=== PATIENT | female | born 1940 | race Caucasian/White ===

== ENCOUNTER 2022-02-17 12:14 | Inpatient (IN) | payer BC ==
[~2022-02-17] VITALS: Ht 165.1 cm; Wt 68.0 kg
[2022-02-17] MEDS ORDERED: IV NS 0.9% 1,000 ML BAG IV ONE ×2 (12:30→15:00)
--- NOTE | 2022-02-17 12:49 | NUR ---
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
--- NOTE | 2022-02-17 12:59 | NUR ---
COVID ANTIGEN SWAB DONE AND SENT TO THE LAB
--- NOTE | 2022-02-17 13:03 | NUR ---
MOVE SHEET SUBMITTED.
--- NOTE | 2022-02-17 13:23 | NUR ---
THE PATIENT IS TAKEN TO CT [facility]IA [facility]
--- NOTE | 2022-02-17 13:29 | NUR ---
RADHA RODRIGUEZ (CAREGIVER) CELL [phone], HOME [phone]
[2022-02-17 13:30] LABS: ALANINE AMINOTRANSFERASE 285 U/L (12-78); ALBUMIN 3.2 g/dL (3.4-5.0); ALKALINE PHOSPHATASE 58 U/L (46-116); ASPARTATE AMINOTRANSFERASE 805 U/L (15-37); BILIRUBIN,DIRECT 0.3 mg/dL (0.0-0.2); BILIRUBIN,TOTAL 1.1 mg/dL (0.2-1.0); CALCIUM, SERUM 8.4 mg/dL (8.5-10.1); CARBON DIOXIDE 25 mmol/L (21-32); CHLORIDE 105 mmol/L (98-107); GLUCOSE 117 mg/dL (74-106); POTASSIUM 3.7 mmol/L (3.5-5.1); SODIUM SERUM 138 mmol/L (136-145); TOTAL PROTEIN, SERUM 6.9 g/dL (6.4-8.2); UREA NITROGEN, BLOOD 40 mg/dL (7-18)
--- NOTE | 2022-02-17 13:33 | NUR ---
THE PATIENT IS BACK FROM CT VIA [facility]
[2022-02-17 13:47] LABS: BASOPHILS % (AUTO) 0.1 % (0.0-2.0); HEMATOCRIT 41 % (33-45); HEMOGLOBIN 13.2 g/dL (11.5-14.8); LYMPHOCYTES # (AUTO) 0.8 K/uL (0.8-4.8); LYMPHOCYTES % (AUTO) 5.1 % (20.0-44.0); MEAN CORPUSCULAR HGB CONC 32 g/dl (31.0-36.0); MEAN CORPUSCULAR VOLUME 87 fL (82-100); MONOCYTES # (AUTO) 1.6 K/uL (0.1-1.30); MONOCYTES % (AUTO) 10.6 % (2.0-12.0); NEUTROPHILS # (AUTO) 12.5 K/uL (1.8-8.9); NEUTROPHILS % (AUTO) 84.2 % (43.0-81.0); PLATELET COUNT (AUTO) 263 K/uL (150-450); RED BLOOD CELL COUNT(AUTO) 4.69 MIL/uL (4.0-5.2); WHITE BLOOD COUNT (AUTO) 14.8 K/uL (4.3-11.0)
[2022-02-17] MEDS ORDERED: AMOX500C2 PO (14:05)
[2022-02-17] MEDS ORDERED: ROSU10TA29 PO (14:05)
[2022-02-17] MEDS ORDERED: MYRBETRIQ PO (14:05)
[2022-02-17] MEDS ORDERED: ASPIRIN 81 MG TAB.CHEW PO ONE (14:30)
[2022-02-17] MEDS ORDERED: ASPIRIN 81 MG TAB.CHEW ONE (14:32)
--- NOTE | 2022-02-17 14:51 | NUR ---
troponin blood drawn test sent to lab
--- NOTE | 2022-02-17 14:51 | NUR ---
PT SLEEPING, 700 ML VOID URINE BROWN AND PINK/RED IN COLOR
[2022-02-17] MEDS ORDERED: ONDANSETRON HCL/PF 4 MG/2 ML VIAL IVP PRN (15:00)
[2022-02-17] MEDS: ASPIRIN 81 MG TAB.CHEW PO SCH (15:04)
--- NOTE | 2022-02-17 15:34 | NUR ---
ROOM 115-2
[2022-02-17] MEDS ORDERED: ENOXAPARIN SODIUM 40 MG/0.4 ML DISP.SYRIN SQ ONE (16:00)
--- NOTE | 2022-02-17 16:00 | NUR ---
HOSIERY BAGGER NOTE ADMIT 81 YEAR OLD FEMALE TO TRAVON UNIT AT ROOM 115-2 ON TELE MONITORING,ADMITTING DIAGNOSIS IS NSTEMI.LACTIC ACID IS 2.0.TROPONIN LEVEL IS 2239.ALERT ORIENTED X4 VERBALLY RESPONSIVE ON ROOM AIR O2:96% IV SITE IS ON LEFT AC INTACT PATENT,SAFETY MEASURE IMPLEMENT BED IN LOW POSITION AND LOCKED,HEAD OF ELEVATED,CALL LIGHT WITHIN REACH CONTINUE TO MONITOR
[2022-02-17 16:16] VITALS: BP 101/49
[2022-02-17] MEDS: IV NS 0.9% 1,000 ML IV PRN (16:33)
--- NOTE | 2022-02-17 18:42 | NUR ---
RN NOTE PATIENT REMAINS ALERT ORIENTED X4 VERBALLY RESPONSIVE ON ROOM AIR O2:97% NO PAIN NOT ACUTE DISTRESS NOTED,IV SITE IS ON LEFT AC INTACT PATENT ON IV HYDRATION 80CC/HR,ALL DUE MEDS GIVEN MD ORDERED KEPT CLEAN AND DRY,KEPT CALL LIGHT WITHIN REACH,ENDORSE NEXT COMING SHIFT FOR CONTINUATION OF CARE
--- NOTE | 2022-02-17 19:48 | NUR ---
RN OPENING NOTE PATIENT AWAKE IN BED. A/OX3. NO S/S OF DISTRESS, BREATHING WITHOUT DIFFICULTY ON ROOM AIR. LAC#20 INTACT AND PATENT W/ NS 80ML/HR. TELE READS SR 77 W/ BBB. SAFETY MEASURES IN PLACE: BED LOCKED AND AT LOWEST POSITION, RAILS UP X2, CALL SHARMA WITHIN REACH. WILL CONTINUE TO MONITOR THE PATIENT.
[2022-02-17 20:00] VITALS: BP 144/64
[2022-02-17] MEDS: POLYVINYL ALCOHOL/POVIDONE 0.4 ML DROPERETTE EACHEYE SCH (22:06)
[2022-02-18] VITALS: BP 115/58
--- NOTE | 2022-02-18 00:45 | NUR ---
RN NOTES CRITICAL LAB RECEIVED; TROPONIN 1324 ENDORSED TO PRIMARY NURSE-ADEBAYO JACKMAN
[2022-02-18 08:00] VITALS: BP 124/59
--- NOTE | 2022-02-18 08:03 | NUR ---
RN OPENING NOTE PATIENT AWAKE IN BED. A/OX3. NO S/S OF DISTRESS, BREATHING WITHOUT DIFFICULTY ON ROOM AIR. LAC#20 INTACT AND PATENT W/ NS 80ML/HR. TELE READS SR 62 W/ BBB. SAFETY MEASURES IN PLACE: BED LOCKED AND AT LOWEST POSITION, RAILS UP X2, CALL SHARMA WITHIN REACH. WILL CONTINUE TO MONITOR THE PATIENT.
[2022-02-18] MEDS: POLYVINYL ALCOHOL 15 ML BOTTLE EACHEYE PRN (09:01)
[2022-02-18] MEDS: ASPIRIN 81 MG TAB.CHEW PO SCH (09:01)
[2022-02-18] MEDS: POLYVINYL ALCOHOL/POVIDONE 0.4 ML DROPERETTE EACHEYE SCH ×2 (09:03→17:49)
[2022-02-18 12:00] VITALS: BP 112/54
[2022-02-18 15:03] LABS: BASOPHILS % (AUTO) 0.3 % (0.0-2.0); EOSINOPHILS % (AUTO) 0.6 % (0.0-6.0); HEMATOCRIT 38 % (33-45); HEMOGLOBIN 12.8 g/dL (11.5-14.8); MEAN CORPUSCULAR HGB CONC 34 g/dl (31.0-36.0); MEAN CORPUSCULAR VOLUME 87 fL (82-100); MONOCYTES % (AUTO) 11.9 % (2.0-12.0); NEUTROPHILS # (AUTO) 6.4 K/uL (1.8-8.9); NEUTROPHILS % (AUTO) 75.2 % (43.0-81.0); PLATELET COUNT (AUTO) 237 K/uL (150-450); RED BLOOD CELL COUNT(AUTO) 4.36 MIL/uL (4.0-5.2); WHITE BLOOD COUNT (AUTO) 8.5 K/uL (4.3-11.0)
[2022-02-18 15:14] LABS: CALCIUM, SERUM 7.7 mg/dL (8.5-10.1); CREATININE 0.7 mg/dL (0.6-1.3); MAGNESIUM 2.2 mg/dL (1.8-2.4); PHOSPHORUS 2.8 mg/dL (2.5-4.9); POTASSIUM 4.2 mmol/L (3.5-5.1)
[2022-02-18 16:00] VITALS: BP 111/56
[2022-02-18] MEDS: IV NS 0.9% 1,000 ML IV PRN (18:57)
--- NOTE | 2022-02-18 19:10 | NUR ---
RN NOTES RECEIVED REPORT FROM MORNING SHIFT. PATIENT IN BED A/O X3 ABLE TO MAKE NEEDS KNOWN. WITH PERIODS OF CONFUSION. ON ROOM AIR SATING 97% NO SOB NO PAIN NOTED AT THIS TIME. ALL SAFETY MEASURES IN PLACE AT ALL TIMES. HOB ELEVATED. CALL LIGHT WITHIN REACH. WILL CONTINUE TO MONITOR THE PATIENT CLOSELY
[2022-02-18 20:00] VITALS: BP 113/60
[2022-02-19] VITALS: BP 128/71
--- NOTE | 2022-02-19 02:30 | NUR ---
RN NOTES RELAYED CULTURE RESULT TO DR BRANDON LEBRON GRAM POSITIVE COCCI CLUSTER WITH NEW ORDER TO START VANCOMYCIN PHARMACY TO DOSE
[2022-02-19] MEDS ORDERED: VANCOMYCIN 1.25 GM in IV D5W 250 ML IV ONE (03:30)
[2022-02-19] MEDS ORDERED: VANCOMYCIN 1 GM VIAL ONE (03:44)
[2022-02-19 04:00] VITALS: BP 129/74
--- NOTE | 2022-02-19 06:53 | NUR ---
RN NOTES PATIENT REMAINS STABLE NO SIGNIFICANT CHANGES IN HEALTH CONDITION. ALL DUE MEDS GIVEN. STILL WITH R FA IV ACCESS PATENT FLUSHES WELL. WITH ONGOING IVF PNS @ 80CC/HR TOLERATING WELL. ALL SAFETY MEASURES IN PLACE AT ALL TIMES. HOB ELEVATED. CALL LIGHT WITHIN REACH. WILL ENDORSED TO MORNING SHIFT FOR RICKY
--- NOTE | 2022-02-19 07:30 | NUR ---
telephone mechanic opening note Patient is alert and oriented x3-4. patient is currently sinus rhythm on tele monitor. Patient has right forearm 20 gauge. iv patent and flushing well. patient has normal saline running at 80 ml/hr. patient is on room air tolerating above 95%. patient uses diaper. patient is fall risk. all safety measures in place. call light within beach. bed locked at lowest position. side rails up x2. will continue to assess throughout shift.
[2022-02-19 08:00] VITALS: BP 118/56
[2022-02-19] MEDS: ASPIRIN 81 MG TAB.CHEW PO SCH (10:28)
[2022-02-19] MEDS: POLYVINYL ALCOHOL 15 ML BOTTLE EACHEYE PRN (10:28)
--- NOTE | 2022-02-19 10:30 | NUR ---
patient caregiver at bedside
--- NOTE | 2022-02-19 11:00 | NUR ---
physical therapist saw patient
[2022-02-19 12:00] VITALS: BP 119/49
[2022-02-19] MEDS: POLYVINYL ALCOHOL/POVIDONE 0.4 ML DROPERETTE EACHEYE SCH ×2 (12:03→16:21)
[2022-02-19] MEDS: IV NS 0.9% 1,000 ML IV PRN (14:26)
[2022-02-19] MEDS: VANCOMYCIN 0.75 GM in IV D5W 250 ML IV SCH (15:49)
[2022-02-19 16:00] VITALS: BP 125/50
--- NOTE | 2022-02-19 18:54 | NUR ---
telemarketer supervisor closing note Patient is alert and oriented x3-4. patient is med surg status. Patient has right forearm 20 gauge. iv patent and flushing well. patient has normal saline currently running at 80 ml/hr. patient is on room air tolerating above 95%. patient uses diaper. kept clean and dry.patient is fall risk. all needs met. reinforced teaching on fall precautions.all safety measures in place. call light within beach. bed locked at lowest position. side rails up x2. endorsed to night worker rn
--- NOTE | 2022-02-19 19:05 | NUR ---
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 -ORIENTED TO UNIT AND STAFF, NON LABORED BREATHING, KEPT CALL LIGHT WITHIN EASY REACH, SAFETY PRECAUTION OBSERVED.
[2022-02-19 20:00] VITALS: BP 119/70
[2022-02-20] VITALS: BP 122/65
[2022-02-20 04:00] VITALS: BP 122/65
[2022-02-20] MEDS: VANCOMYCIN 0.75 GM in IV D5W 250 ML IV SCH (04:11)
[2022-02-20] MEDS: IV NS 0.9% 1,000 ML IV PRN ×2 (04:12→19:20)
--- NOTE | 2022-02-20 04:13 | NUR ---
RN NOTES: IVF CONSUMED, STARTED NEW BAG OF NS AT 80ML/HR.
--- NOTE | 2022-02-20 04:13 | NUR ---
RN NOTES: AWAKE IN BETWEEN SHE WAS BEEN CHANGE BY DX BOARD OPERATOR SEVERAL TIME, WITH URINARY FREQUENCY, RESIDENT CLAIMED SHE HAS OVERACTIVE BLADDER, WILL F/U IN THE MORNING IF SHE CAN RESUME HER HOME MEDICATION [facility].
--- NOTE | 2022-02-20 07:30 | NUR ---
MS RN OPENING NOTE RECEIVED PT ASLEEP IN BED, EASILY AROUSED. A/O X 3-4, ABLE TO MAKE NEEDS KNOWN. ON RA, TOLERATING WELL. NO SOB NOTED. NOT IN ANY SIGN OF RESPIRATORY DISTRESS. IV ACCESS IN RFA G #20 INTACT AND PATENT WITH NS INFUSING AT 80ML/HR. SAFETY MEASURES IN PLACE: BED IN LOWEST AND LOCKED POSITION, SIDE RAILS UP X2, AND CALL LIGHT WITHIN REACH. WILL CONTINUE TO MONITOR PT.
[2022-02-20 07:44] LABS: CARBON DIOXIDE 30 mmol/L (21-32); CHLORIDE 99 mmol/L (98-107); CREATININE 0.6 mg/dL (0.6-1.3); GLUCOSE 108 mg/dL (74-106); POTASSIUM 3.9 mmol/L (3.5-5.1); SODIUM SERUM 133 mmol/L (136-145); UREA NITROGEN, BLOOD 11 mg/dL (7-18)
--- NOTE | 2022-02-20 07:45 | NUR ---
RN NOTES: ASLEEP IN THE NIGHT, CALLS AND NEEDS ATTENDED, CLEAN ANC CHANGE,NO CHEST PAIN, NON LABORED BREATHING, STABLE IN THE NIGHT, FOR LABS IN THE MORNING, IVF CONTINUE, FOR POSSIBLE D/C PLAN IN THE MORNING, ENDORSED TO F/U TREATMENT FOR OVER ACTIVE BLADDER.
[2022-02-20 08:00] VITALS: BP 130/63
[2022-02-20] MEDS: ASPIRIN 81 MG TAB.CHEW PO SCH (08:19)
[2022-02-20] MEDS: POLYVINYL ALCOHOL/POVIDONE 0.4 ML DROPERETTE EACHEYE SCH ×2 (08:20→16:12)
[2022-02-20 12:00] VITALS: BP 119/61
[2022-02-20 16:00] VITALS: BP 126/61
--- NOTE | 2022-02-20 19:21 | NUR ---
MS RN CLOSING NOTE PT AWAKE IN BED WATCHING TELEVISION. A/O X 3-4, ABLE TO MAKE NEEDS KNOWN. ON RA, TOLERATING WELL. NO SOB NOTED. NOT IN ANY SIGN OF RESPIRATORY DISTRESS. IV ACCESS IN LAC G #20 INTACT AND PATENT WITH NS INFUSING AT 80ML/HR. ALL NEEDS ATTENDED. KEPT CLEAN AND COMFORTABLE. SAFETY MEASURES IN PLACE: BED IN LOWEST AND LOCKED POSITION, SIDE RAILS UP X2, AND CALL LIGHT WITHIN REACH. WILL ENDORSE TO REGISTERED NURSE CARDIAC TELEMETRY NURSE FOR RICKY.
[2022-02-20 20:00] VITALS: BP 116/70
--- NOTE | 2022-02-20 23:15 | NUR ---
MS RN OPENING NOTE PT RECEIVED IN BED, AWAKE, A&O X4, CALM, COOPERATIVE. ON RA WITH CURRENT O2SAT OF 98%; NO S/S OF RESP DISTRESS, NO SOB OR COUGH, NON-LABORED AND EQUAL BREATHING. VSS, WILL CONTINUE TO MONITOR NEEDED. IV ACCESS ON LAC 20G, INTACT AND PATENT, FLUSHES EASILY WITH NO RESISTANCE, HAS NS RUNNING AT 80 ML/HR. BED IN LOWEST POSITION, CALL LIGHT WITHIN REACH, SIDE RAILS UP X2. WILL CONTINUE TO MONITOR THROUGHOUT THE NIGHT.
[2022-02-21 04:00] VITALS: BP 118/84
[2022-02-21] MEDS: IV NS 0.9% 1,000 ML IV PRN ×2 (06:48→20:37)
[2022-02-21 06:52] LABS: CALCIUM, SERUM 7.8 mg/dL (8.5-10.1); CREATININE 0.6 mg/dL (0.6-1.3); POTASSIUM 3.6 mmol/L (3.5-5.1)
--- NOTE | 2022-02-21 07:13 | NUR ---
MS RN CLOSING NOTE PT REMAINS IN BED, AWAKE, A&O X4, CALM, COOPERATIVE, SLEPT INTERMITTENTLY THROUGHOUT THE NIGHT. REMAINS ON RA WITH O2SAT RANGING FROM 95%-98% THROUGHOUT THE NIGHT, NO S/S OF RESP DISTRESS, NO SOB OR COUGH, NON-LABORED AND EQUAL BREATHING. VSS STABLE THROUGHOUT THE WHOLE NIGHT WITH NO SIGNIFICANT CHANGES. RFA 20G INTACT AND PATENT, FLUSHES EASILY WITH NO RESISTANCE, HAS NS RUNNING AT 80 ML/HR. PUREWICK ATTACHED TO PT EARLY IN THE MORNING. ALL DUE MEDS ADMINISTERED DURING THE NIGHT. BED IN LOWEST POSITION, CALL LIGHT WITHIN REACH, SIDE RAILS UP X3. WILL ENDORSE TO DAYSHIFT NURSE TO CONTINUE CARE.
--- NOTE | 2022-02-21 07:34 | NUR ---
RN NOTE PT RECEIVED IN BED, AWAKE, A&OX4. PT ON ROOM AIR WITH NO SIGNS OF LABORED BREATHING AT THIS TIME. LEFT AC 20G IV IN PLACE RUNNING NS AT 80CC/HR. BED LOCKED AND IN LOWEST POSITION, CALL LIGHT WITHIN REACH, 3 SIDE RAILS UP.
[2022-02-21 08:00] VITALS: BP 135/69
[2022-02-21] MEDS: Z GUARD REMEDY 4 OZ OINT TP SCH (08:30)
[2022-02-21] MEDS: ASPIRIN 81 MG TAB.CHEW PO SCH (08:30)
[2022-02-21] MEDS: POLYVINYL ALCOHOL/POVIDONE 0.4 ML DROPERETTE EACHEYE SCH ×3 (08:31→16:02)
[2022-02-21 16:00] VITALS: BP 124/56
[2022-02-21 20:00] VITALS: BP 125/57
--- NOTE | 2022-02-21 23:15 | NUR ---
MS RN OPENING NOTE PT RECEIVED IN BED, AWAKE, A&O X3 WITH PERIODS OF FORGETFULNESS, CALM, COOPERATIVE. PT ON RA WITH CURRENT O2SAT OF 95%; NO S/S OF RESP DISTRESS, NO SOB OR COUGH, NON-LABORED AND EQUAL BREATHING. VSS, WILL CONTINUE TO MONITOR THROUGHOUT THE NIGHT. PT NOTED TO HAVE PUREWICK; PUREWICK IS INTACT, NO SIGNS OF LEAKING, DRAINING CLEAR AND YELLOW URINE. IV ACCESS ON LAC 20G WITH NS RUNNING AT 80 ML/HR; IV IS INTACT AND PATENT, FLUSHES EASILY WITH NO RESISTANCE. BED IN LOWEST POSITION, CALL LIGHT WITHIN REACH, SIDE RAILS UP X3. WILL CONTINUE TO MONITOR THROUGHOUT THE NIGHT.
[2022-02-22 04:00] VITALS: BP 128/66
--- NOTE | 2022-02-22 06:56 | NUR ---
MS RN CLOSING NOTE PT REMAINS IN BED, AWAKE, A&O X3 WITH PERIODS OF FORGETFULNESS, CALM, COOPERATIVE; SLEPT INTERMITTENTLY THROUGHOUT THE NIGHT. REMAINS ON RA WITH O2SAT RANGING FROM 95%-99%; NO S/S OF RESP DISTRESS, NO SOB OR COUGH, NON-LABORED AND EQUAL BREATHING. VSS WITH NO SIGNIFICANT CHANGES THROUGHOUT THE NIGHT. PUREWICK CHANGED AND IS INTACT AND PATENT, DRAINING CLEAR AND YELLOW URINE. IV ACCESS ON LAC 20G INTACT AND PATENT, FLUSHES EASILY WITH NO RESISTANCE; NS RUNNING AT 80 ML/HR. BED IN LOWEST POSITION, CALL LIGHT WITHIN REACH, SIDE RAILS UP X3. WILL ENDORSE TO DAYSHIFT NURSE TO CONTINUE CARE.
--- NOTE | 2022-02-22 07:30 | NUR ---
RN OPENING NOTE PT RECEIVED IN BED, AWAKE, A&O X4, CALM, COOPERATIVE. ON RA WITH CURRENT O2SAT OF 94% NO S/S OF RESP DISTRESS, NO SOB OR COUGH, NON-LABORED AND EQUAL BREATHING. VSS, WILL CONTINUE TO MONITOR NEEDED. IV ACCESS ON LAC 20G, INTACT AND PATENT, FLUSHES EASILY WITH NO RESISTANCE, HAS NS RUNNING AT 80 ML/HR. BED IN LOWEST POSITION, CALL LIGHT WITHIN REACH, SIDE RAILS UP X2. WILL CONTINUE TO MONITOR THROUGHOUT THE DAY SHIFT
[2022-02-22 07:40] LABS: CALCIUM, SERUM 7.9 mg/dL (8.5-10.1); CREATININE 0.6 mg/dL (0.6-1.3); POTASSIUM 3.6 mmol/L (3.5-5.1)
[2022-02-22 08:00] VITALS: BP 136/77
[2022-02-22] MEDS: POLYVINYL ALCOHOL/POVIDONE 0.4 ML DROPERETTE EACHEYE SCH ×2 (08:44→16:34)
[2022-02-22] MEDS: ASPIRIN 81 MG TAB.CHEW PO SCH (08:44)
[2022-02-22] MEDS: Z GUARD REMEDY 4 OZ OINT TP SCH (08:45)
[2022-02-22] MEDS: IV NS 0.9% 1,000 ML IV PRN (10:06)
[2022-02-22 16:00] VITALS: BP 122/61
--- NOTE | 2022-02-22 18:38 | NUR ---
CLOSING NOTE PT REMAINS IN BED, AWAKE, A&O X3 WITH PERIODS OF FORGETFULNESS, CALM, COOPERATIVE. REMAINS ON RA WITH O2SAT RANGING FROM 95%-99%; NO S/S OF RESP DISTRESS, NO SOB OR COUGH, NON-LABORED AND EQUAL BREATHING. VSS WITH NO SIGNIFICANT CHANGES THROUGHOUT THE NIGHT. PUREWICK CHANGED AND IS INTACT AND PATENT, DRAINING CLEAR AND YELLOW URINE. IV ACCESS ON LAC 20G INTACT AND PATENT, FLUSHES EASILY WITH NO RESISTANCE; NS RUNNING AT 80 ML/HR. BED IN LOWEST POSITION, CALL LIGHT WITHIN REACH, SIDE RAILS UP X3. WILL ENDORSE TO NIGHTSHIFT NURSE TO CONTINUE CARE.
[2022-02-22 20:00] VITALS: BP 119/64
--- NOTE | 2022-02-22 23:14 | NUR ---
MS RN OPENING NOTE PT RECEIVED IN BED, AWAKE AND WATCHING TV, A&O X3-4; PT NOTED TO BE FORGETFUL AT TIMES, BUT IS CALM AND COOPERATIVE. PT ON RA WITH CURRENT O2SAT OF 98%; NO S/S OF RESP DISTRESS, NO SOB OR COUGH, NON-LABORED AND EQUAL BREATHING. VSS, WILL CONTINUE TO MONITOR THROUGHOUT THE NIGHT NEEDED. PUREWICK INTACT AND ATTACHED TO SUCTION, DRAINING CLEAR AND YELLOW URINE. IV ACCESS ON LAC 20G, INTACT AND PATENT, FLUSHES EASILY WITH NO RESISTANCE; NS RUNNING AT 80 ML/HR. BED IN LOWEST POSITION, CALL LIGHT WITHIN REACH, SIDE RAILS UP X3. WILL CONTINUE TO MONITOR THROUGHOUT THE NIGHT.
[2022-02-23] MEDS: IV NS 0.9% 1,000 ML IV PRN (02:32)
[2022-02-23 04:00] VITALS: BP 121/51
--- NOTE | 2022-02-23 06:11 | NUR ---
MS RN CLOSING NOTE PT REMAINS IN BED, ASLEEP BUT EASILY AROUSABLE, SLEPT INTERMITTENTLY THROUGHOUT THE NIGHT, A&O X3-4; PT NOTED TO BE FORGETFUL. CONTINUES TO BE ON RA WITH O2SAT RANGING FROM 98%-99% THROUGHOUT THE NIGHT WITH NO S/S OF RESP DISTRESS, NO SOB OR COUGH, NON-LABORED AND EQUAL BREATHING. PUREWICK CHANGED AND PERINEAL AREA CLEANSED WITH GREEN ANTIBACTERIAL WIPES; PUREWICK DRAINING CLEAR AND YELLOW URINE. SKIN CLEANSED AND ZGUARD AND OPTIFOAM APPLIED TO REDNESS ON SACRUM. LAC 20G INTACT AND PATENT, FLUSHES EASILY WITH NO RESISTANCE, NS INFUSING AT 80 ML/HR. BED IN LOWEST POSITION, CALL LIGHT WITHIN REACH, SIDE RAILS UP X3. WILL ENDORSE TO DAYSHIFT NURSE TO CONTINUE CARE.
--- NOTE | 2022-02-23 07:30 | NUR ---
RN OPENING NOTE PATIENT IS IN BED, AWAKE, ALERT AND ORIENTED X 3. DENIES PAIN, BREATHING UNLABORED AND NOT IN ANY FORM OF DISTRESS. ON ROOM AIR SATTING AT 98%. LEFT ANTECUBITAL LINE INTACT AND INFUSING WITH NS AT 80 ML./HR, NO SIGNS OF INFILTRATION OR PHLEBITIS ON IV SITE. BED IS LOCKED IN LOWEST POSITION, 3 SIDE RAILS UP, CALL LIGHT WITHIN REACH. WILL CONTINUE TO MONITOR THROUGHOUT SHIFT.
[2022-02-23] MEDS: ASPIRIN 81 MG TAB.CHEW PO SCH (08:39)
[2022-02-23] MEDS: POLYVINYL ALCOHOL 15 ML BOTTLE EACHEYE PRN ×2 (08:42→17:36)
[2022-02-23] MEDS: Z GUARD REMEDY 4 OZ OINT TP SCH (08:44)
[2022-02-23] MEDS: POLYVINYL ALCOHOL/POVIDONE 0.4 ML DROPERETTE EACHEYE SCH ×2 (08:45→17:00)
--- NOTE | 2022-02-23 09:52 | NUR ---
WOUND CARE CONSULT: PT PRESENTS WITH MULTIPLE DRY ABRASIONS INCLUDING LEFT BUTTOCK, LEFT ELBOW AREA AND MULTIPLE AREAS OF SKIN DISCOLORATION, PRESENT ON ADMISSION. RECOMMENDATIONS MADE FOR SKIN PROTECTION. DISCUSSED WITH NURSING STAFF. MD IN AGREEMENT WITH PLAN OF CARE. PT IS ABLE TO ASSIST WITH TURNING AND REPOSITIONING IN BED.
[2022-02-23 12:07] VITALS: BP 125/62
--- NOTE | 2022-02-23 18:40 | NUR ---
RN CLOSING NOTE PATIENT IS DISCHARG[facility] TO [facility]IA [facility]UL[facility] IN STABLE CONDITION AND NOT IN ANY FORM OF DISTRESS. SKIN ISSUES PHOTOGRAPHED AND DOCUMENTED PER [facility]OSPITAL [facility]. REPORT GIVEN TO ISABEL DIAZ OF THE RECEIVING FACILITY. ALL FORMS SIGNED. DISCHARGE PACKET RECEIVED BY PATIENT. IV LINE DISCONTINUED AND IV SITE COVERED WITH DRY DRESSING, IV CANNULA COMPLETE AND INTACT. DISCHARGE VITAL SIGNS: T 98.1, HR 74, RR 18, O2 95%, BP 112/53.
== END 2022-02-23 21:00 | DRG 280 ==
LOC: ER 12:20 → TELE1 15:44 → MEDSG1 02-19 12:33
PROVIDERS: ADMIT Internal Medicine; ATTEND Internal Medicine
DX: I21.4 Non-ST elevation (NSTEMI) myocardial infarction (principal); K72.00 Acute and subacute hepatic failure without coma; M62.82 Rhabdomyolysis; R65.10 Systemic inflammatory response syndrome (SIRS) of non-infectious origin without acute organ dysfunction; R29.6 Repeated falls; Z20.822 Contact with and (suspected) exposure to COVID-19; N32.81 Overactive bladder; M19.90 Unspecified osteoarthritis, unspecified site; E78.00 Pure hypercholesterolemia, unspecified; D72.829 Elevated white blood cell count, unspecified; W18.30XA Fall on same level, unspecified, initial encounter; Z91.81 History of falling; Y92.003 Bedroom of unspecified non-institutional (private) residence as the place of occurrence of the external cause
CPT/HCPCS: 36415; 70450-TC; 71045-TC; 80048-TC; 80076-TC; 82550-TC; 82553; 83605-TC; 83735-TC; 84100-TC; 84484-TC; 85025-TC; 85730-TC; 87040-TC; 87081-TC; 93307-TC; 97116-TC; 97530-TC; C9803; G0378; J1650; J3370; J7030; J7060